=== PATIENT | male | born 1960 | race African-American/Black ===

== ENCOUNTER 2016-08-09 10:55 | Emergency (ER) | payer OTHER ==
[~2016-08-09 10:55] MED LIST: B150 PO; SPIRO25 PO; XIFAXAN550 MG PO
== END 2016-08-09 11:25 | disposition home or self-care (01) ==
LOC: ER 10:55
DX: L02.811 Cutaneous abscess of head [any part, except face] (principal); I10 Essential (primary) hypertension; F17.200 Nicotine dependence, unspecified, uncomplicated; Z79.899 Other long term (current) drug therapy
CPT/HCPCS: 99284

== ENCOUNTER 2016-10-20 22:01 | Observation (INO) | payer OTHER, BC ==
--- NOTE | ~2016-10-20 | HP ---
History And Physical [place] [id number] [facility] [place]. 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 Weiner. CHIEF COMPLAINT: Chest pain and dyspnea on exertion. HISTORY OF PRESENT ILLNESS: This is a pleasant 56-year-old male with a history of hypertension. He was previously only on Aldactone, but he self stopped all of his medications about five months ago because he felt tired. He does also have cardiac risk factor of ongoing tobacco usage. He does also have a history significant for asthma/COPD and hepatitis C with cirrhosis and he completed medications last year for hepatitis C treatment. He is on no hepatitis medications at this present time. He reports that he presented to the emergency department yesterday with constant chest pain yesterday and the night prior. He reports that the chest pain is worse with inspiration. He reports no alleviating symptoms. His chest pain was not improved with nitroglycerin given in the emergency department. He does report sometimes he is short of breath with exertion. Of note, in the emergency department, they noted that he was grossly wheezing in all lung rubin. He denies any idea of wheezing however. Again, he quit medications about five months ago because he felt tired and he attributed it to his medications. Currently, he denies any dyspnea. He has no chest pain at this time. He denies any history of exertional chest pain. No associated symptoms with chest pain. Of note, he has never had chest pain until overnight the night prior to last and yesterday during the day and that this had occurred at the same time that he noted thick clear and white sputum with the cough. He denies any fever. He reports coughing has improved. He denies any recent illness or myalgias. PAST MEDICAL HISTORY: 1. Hypertension that is currently untreated after previously being treated with Aldactone. 2. Medication noncompliance x5 months due to symptoms of fatigue. The patient had quit medications. 3. Hepatitis C with liver cirrhosis, for which he is followed by Dr. Weiner. He reports last year he completed treatment for hepatitis. 4. Hepatic and renal cyst on CT of the aorta, 02/14/2013, with negative aneurysm or dissection. 5. Asthma/COPD. 6. Ongoing smoking/tobacco abuse. 7. History of stomach ulcers with no current GI bleeding per patient report. 8. Diverticulitis. 9. GERD. 10.Degenerative disc disease. 11.Arthritis. 12.Irritable bowel syndrome. PAST SURGICAL HISTORY: Tonsillectomy. History And Physical [address] [id number] NAME: MODESTO MINA : 58 STATUS : ADM Bozena PAT#: [id number] AGE: 56 ADM/REG DATE : 10/20/16 MR#: [id number] REPORT SERV DATE: 10/21/16 DICTATED BY: BEN WILDE DATE: 10/21/16 REPORT STATUS : Draft TRANSCRIBED BY: MILTON DATE: 10/21/16 SOCIAL HISTORY: Single. Supportive family. Son is at the bedside and sleeping. He reports he lives with his family. He started smoking approximately three years ago and currently smokes one pack per day for those three years. He does also have exposure to secondhand smoke. He consumes alcohol three drinks approximately two days per week. FAMILY HISTORY: Positive for CAD. REVIEW OF SYSTEMS: The patient denies having cardiac stress testing. He denies any flu-like symptoms. He denies any GI bleeding. He denies any history of renal disease. He does not check his blood pressure. As above per HPI, all other systems reviewed and negative. HOME MEDICATIONS: Albuterol one puff inhaled twice a day as needed for shortness of breath. Please note, the patient discontinued all other medications approximately five months ago. No known drug allergies. PHYSICAL EXAMINATION: VITAL SIGNS: Oxygen saturation 97% on room air. Height 165 cm. Weight 72.57 kg. Temperature 97.7, pulse 56, respiratory rate 16. Blood pressure initially 135/89, elevated to 182/97 yesterday, most recent blood pressure 123/81. GENERAL: Well developed, well nourished. In no apparent distress. HEENT: Head normocephalic. No xanthelasma. Sclera clear, anicteric. Moist mucous membranes without pallor. No lymphadenopathy. No deficits noted. NECK: Trachea midline. Supple. No thyromegaly, JVD, or bruits. RESPIRATORY: Unlabored respirations. Breath sounds clear in the bilateral upper lobes to posterior auscultation; faint expiratory wheezes noted bibasilarly. CARDIOVASCULAR: Regular rate and rhythm. No murmur, rub, or gallop appreciated. No chest wall tenderness to palpation. ABDOMEN: Soft, nontender, and nondistended. Active bowel sounds auscultated x4 quadrants. No organomegaly and no masses. No aortic bruit. EXTREMITIES: DP/PT and radial pulses 2+ bilaterally. No clubbing, cyanosis, or edema. SKIN: Warm, dry, intact. No rash. Normal turgor. MUSCULOSKELETAL: Moves all extremities in bed without difficulty. NEURO/PSYCH: Alert and oriented x3 with no acute distress. Affect appropriate to current situation. LABORATORY DATA: BMP: Sodium 143, potassium 4.3, creatinine is mildly elevated at 1.22 with a baseline per [employer] review from 2010 to 2013 of 0.06 to 0.9. Glucose 105. Magnesium 2.5. CBC: White blood cell count 5.2, hemoglobin 16.7, hematocrit 50.1, platelets 246. Troponin less than 0.02 x2. Studies: Chest x-ray, no acute processes, borderline heart size. EKG: Personally interpreted x2. One EKG with sinus bradycardia, rate 52, with Q-wave in leads V1 and V2 with no ischemia. Other EKG, normal sinus rhythm, rate 60, with Q-wave in History And Physical [address] [address] NAME: MODESTO MINA : 58 STATUS : ADM Bozena PAT#: [id number] AGE: 56 ADM/REG DATE : 10/20/16 MR#: [id number] REPORT SERV DATE: 10/21/16 DICTATED BY: BEN WILDE DATE: 10/21/16 REPORT STATUS : Draft TRANSCRIBED BY: MODBharath DATE: 10/21/16 V1 and V2 with no ischemia. Please note, this is the same as prior EKG reviewed from 07/16/2013, which did also have a Q-wave in V1 and V2. Telemetry: Sinus bradycardia, 50s. ASSESSMENT AND PLAN: 1. Chest pain with atypical features. Chest pain occurred overnight the night prior to admission and yesterday. This occurred with the onset of a cough. His symptoms were worse with coughing and inspiration and he had never previously had chest pain. He was wheezing in the emergency department, which is improved at this time. Two negative troponins. EKG with no ischemia. We will plan a nuclear stress test today given cardiac risk factors of hypertension and ongoing tobacco abuse. He will be discharged to home if the stress test is low risk with no ischemia. He is to follow up with his primary care provider in one week. 2. Hypertension. This is currently untreated as the patient had contributed his prior blood pressure medication Aldactone to causing him to have fatigue. He is willing to try another medication. His blood pressure was as high as 182/97 and as low as 123/81. I will give him amlodipine 5 mg p.o. daily with no refills. He is to follow up with his primary care provider for further monitoring and recommendations. Of note, I chose amlodipine because he does have sinus bradycardia, so I do not wish to institute a medicine that would further lower heart rate; given renal insufficiency of unknown duration, I wish to avoid DAVID inhibitors, ARBs, and hydrochlorothiazide until he would have an evaluation with his PCP for renal function. He is to follow up with his primary care provider in one week for followup of blood pressure and for a basic metabolic panel to monitor kidney function. The patient is to check blood pressure daily, record, and bring in to the primary care provider's office in one week. He voices understanding and agreement with the plan. 3. Ongoing tobacco abuse with cigarettes. I counseled him that he must quit smoking for cardiovascular well being along with to help decrease wheezing with asthma. 4. Asthma. Please see above. There is no evidence of an acute exacerbation, however, he is to follow up with his primary care provider for further monitoring and potentially escalation of treatment. 5. Mild renal insufficiency, that has not been noted previously, of unknown duration. Creatinine today is 1.22. He denies being dehydrated. He is to follow up with primary care provider for a basic metabolic panel check in one week. 6. Hepatitis C. He reports he has a followup appointment with his drug abuse social worker, Dr. Weiner on Sunday. He is to keep that appointment. 7. Medication noncompliance x5 months due to concerns over fatigue. He is to follow up with primary care provider for further discussions about medications. Again, I will provide amlodipine 5 mg p.o. x1 month and he is then to follow up with primary care provider for further changes to blood pressure medications. The patient to be seen down in the stress testing area by rounding duralumin mechanic for CPOU. DAVIAN/MILTON History And Physical [address] [address] NAME: MODESTO MINA : 58 STATUS : ADM Bozena PAT#: [id number] AGE: 56 ADM/REG DATE : 10/20/16 MR#: [id number] REPORT SERV DATE: 10/21/16 DICTATED BY: BEN WILDE DATE: 10/21/16 REPORT STATUS : Draft TRANSCRIBED BY: MILTON DATE: 10/21/16 Ben Wilde NP / [id number] CC: Concha Rodrigues, MSN, [employer] SALES REPRESENTATIVE-BC Sima Maldonado M.D. Jayme Weiner M.D.
[2016-10-20 17:54] LABS: BASOPHILS 0.4 %; BASOPHILS ABSOLUTE 0.02 10/3/uL (0.0-0.16); EOSINOPHILS 3.6 %; EOSINOPHILS ABSOLUTE 0.19 10/3/uL (0.0-0.53); ER CBC TAT 0 Hrs 08 Mins; HEMOGLOBIN 16.7 g/dL (13.6-17.8); IMMATURE GRANULOCYTES 0.2 %; IMMATURE GRANULOCYTES ABSOLUTE 0.01 10/3/uL (0.0-0.11); LYMPHOCYTES ABSOLUTE 1.36 10/3/uL (0.67-4.30); MEAN CORPUS HGB CONC 33.3 g/dL (32.0-36.0); MEAN CORPUSCULAR HEMOGLOB 31.5 pg (26.0-34.0); MEAN PLATELET VOLUME 9.4 fL (9.2-13.0); MONOCYTES 14.1 %; MONOCYTES ABSOLUTE 0.74 10/3/uL (0.21-1.20); NEUTROPHILS 55.7 %; NEUTROPHILS ABSOLUTE 2.92 10/3/uL (2.02-8.40); PLATELET COUNT 346 10/3/uL (150-400); RBC DISTRIBUTION WIDTH 15.9 % (12.0-16.0); WHITE BLOOD CELLS 5.2 10/3/uL (4.5-10.5)
[2016-10-20 17:56] LABS: HEMATOCRIT 50.1 % (40.0-51.0); MANUAL DIFF NO %; MEAN CORPUSCULAR VOLUME 94.5 fL (80-100)
[2016-10-20 17:59] LABS: INTERNATIONAL NORMAL RATI 0.9 UNITS (-); PARTIAL THROMBO TIME 33.7 SEC (22.5-37.2); PROTIME (NOT ORD) 12.5 SEC (12.0-14.5)
[2016-10-20 18:07] LABS: BUN (BLOOD UREA NITROGEN) 10 MG/DL (6-23); CALCIUM, SERUM 9.2 MG/DL (8.5-10.4); CHEST PAIN PROFILE TAT 0 Hrs 21 Mins; CHLORIDE, SERUM 110 MMOL/L (96-112); CO2 (CARBON DIOXIDE) 25 MMOL/L (24-34); CREATININE 1.22 MG/DL (0.70-1.30); GFR AFRICAN AMERICAN 76 ML/MIN (>=60); GFR NON AFRICAN AMERICAN 65 ML/MIN (>=60); POTASSIUM, SERUM 4.3 MMOL/L (3.5-5.3); SODIUM, SERUM 143 MMOL/L (135-148); TROPONIN I <0.02 NG/ML (<0.05)
[2016-10-20 18:10] LABS: GLUCOSE, SERUM 105 MG/DL (60-99)
[2016-10-21] MEDS ORDERED: VENTOLIN HFA INH (00:56)
[2016-10-21] MEDS ORDERED: NORV5 PO (12:38)
== END 2016-10-21 13:05 | disposition home or self-care (01) ==
LOC: ER 22:01 → CDU1 22:43 → CDU2 23:18
PROVIDERS: Emergency Medicine
DX: R07.89 Other chest pain (principal); I10 Essential (primary) hypertension; F17.210 Nicotine dependence, cigarettes, uncomplicated; J45.909 Unspecified asthma, uncomplicated; B19.20 Unspecified viral hepatitis C without hepatic coma; K21.9 Gastro-esophageal reflux disease without esophagitis; M19.90 Unspecified osteoarthritis, unspecified site; K58.9 Irritable bowel syndrome, unspecified; Z90.89 Acquired absence of other organs; Z79.899 Other long term (current) drug therapy; Z98.890 Other specified postprocedural states
CPT/HCPCS: 71020; 78452; 80048; 83735; 84484; 85025; 85610; 85730; 93005; 93017; 96374; 96375; 96376; 99285; A9270-GY; A9502; G0378; J2405